=== PATIENT | male | born 1990 | race Native Hawaiian/Other Pacific Islander ===

== ENCOUNTER 2017-03-01 06:21 | Day surgery (SDC) | payer OTHER ==
[2017-03-01 06:48] VITALS: BMI 25.7
[2017-03-01] MEDS ORDERED: Propofol 10 mg/ml Inj (20 ML) ONE (08:11)
--- NOTE | 2017-03-01 08:14 | CP.SDSHP ---
Same Day Surgery H & P - History Proposed Procedure: Colonoscopy Pre-Op Diagnosis: Change in bowel habits - Previous Medical/Surgical History Previous Surgical History: Testicular surgery - Allergies Allergies: Allergies No Known Allergies Allergy (Unverified 10/18/14 04:10) - Current Medications Current Medications: See reconciliations sheet - Physical Exam General Appearance: WD WN male in NAD Vital Signs: Vital Signs 03/01/17 06:54 Temperature 98.6 F Pulse Rate 55 L Respiratory 19 Rate Blood Pressure 121/53 L O2 Sat by Pulse 100 Oximetry Mental Status: Alert & Oriented x3 Neuro: WNL Heart: WNL Lungs: WNL GI: WNL - {Optional Preform as Required} Abdomen: WNL - Impression Impression: Change in bowel habits Pt. Evaluated Today:Candidate for Anesthesia & Procedure: Yes - Date & Time Date: 03/01/17 Time: 08:14 Short Stay Discharge - Short Stay Discharge Admitting Diagnosis/Reason for Visit: CHANGE IN BOWEL HABITS Disposition: HOME/ ROUTINE
[2017-03-01 08:49] VITALS: TEMP 97.8
[2017-03-01 09:11] VITALS: O2SAT 100
[2017-03-01 09:34] VITALS: RESP 14
[2017-03-01 09:45] VITALS: BP 106/70; PULSE 56
== END 2017-03-01 09:42 | disposition home or self-care (01) ==
LOC: C.ENDO 06:21
PROVIDERS: ATTEND Internal Medicine Gastroenterology
DX: K52.89 Other specified noninfective gastroenteritis and colitis (principal); R19.4 Change in bowel habit
CPT/HCPCS: 45380; 88305; J2704; J7040